=== PATIENT | female | born 1950 | race Hispanic/Latino ===

== ENCOUNTER → 2021-10-11 | Day surgery (SDC) | payer MEDICARE ==
[2021-10-10 11:07] LABS: BASOPHILS % 0.2 % (0.0-1.0); EOSINOPHILS # (AUTO) 0.1 (0.0-0.4); EOSINOPHILS % 1.7 % (0.0-6.0); HEMATOCRIT 39.1 % (34.2-44.1); HEMOGLOBIN 11.8 g/dL (12.0-16.0); LYMPHOCYTES # (AUTO) 1.9 (1.0-3.2); LYMPHOCYTES % 34.7 % (18.0-39.1); MEAN CORPUSCULAR HEMOGLOBIN 25.6 pg (28-32); MEAN CORPUSCULAR HGB CONC 30.2 g/dL (31-35); MEAN CORPUSCULAR VOLUME 84.8 fL (81-99); MONOCYTES # (AUTO) 0.8 (0.2-0.8); MONOCYTES % 15.1 % (4.4-11.3); NEUTROPHILS # (AUTO) 2.6 (2.1-6.9); NEUTROPHILS % 47.9 % (38.7-80.0); PLATELET COUNT 273 x10e3/uL (140-360); RED BLOOD COUNT 4.61 x10e6/uL (3.6-5.1); RED CELL DISTRIBUTION WIDTH 16.1 % (11.7-14.4)
[~2021-10-11] MED LIST: ACTOS15 MG PO; ALBUTEROL0.63 MG/3 NEB; AMITRIPTYLINE H10 MG PO; ASPIRIN81 MG PO; BUDESONIDE0.5 MG/2 M NEB; DEXTROSE 5% 250ML 250 ML IV ONE; FENTANYL CITRATE/PF 100MCG/2 ML INJ ONE; FLECTOR1 EACH TOP; FLONASE ALLERG9.9 ML INH; FOLIC ACID0.4 MG PO; GABAPENTIN300 MG PO; HYOSCYAMINE SULFATE 0.5 MG/ML INJ ONE; LEVOTHYROXINE112 MCG PO; LIDOCAINE HCL 2% LOCAL INJ 5 ML SDV VIAL INJ ONE; LIPITOR10 MG PO; MICARDIS20 MG PO; MIDAZOLAM HCL 2 MG/2 ML VIAL ONE; NEXIUM40 MG PO; OZEMPIC0.25 MG/0. SC; PHENYLEPHRINE HCL 1% 10 MG/ML VIAL ONE; TOVIAZ4 MG PO; VIT D PO; XIGDUO XR 5 MG1 EAC1 PO; [UNRECOGNIZED DRUG - OTHER] INJ
[2021-10-11 16:36] VITALS: BP 136/70
== END | disposition home or self-care (01) ==
LOC: OR 11:49
PROVIDERS: ATTEND Internal Medicine Gastroenterology
DX: K29.50 Unspecified chronic gastritis without bleeding (principal); K62.1 Rectal polyp; K21.00 Gastro-esophageal reflux disease with esophagitis, without bleeding; K22.89 Other specified disease of esophagus; K44.9 Diaphragmatic hernia without obstruction or gangrene; K57.30 Diverticulosis of large intestine without perforation or abscess without bleeding; K64.8 Other hemorrhoids; Z71.3 Dietary counseling and surveillance; E11.9 Type 2 diabetes mellitus without complications; I25.10 Atherosclerotic heart disease of native coronary artery without angina pectoris; I10 Essential (primary) hypertension; J45.909 Unspecified asthma, uncomplicated; M06.9 Rheumatoid arthritis, unspecified; E03.9 Hypothyroidism, unspecified; Z88.0 Allergy status to penicillin; Z01.810 Encounter for preprocedural cardiovascular examination; Z01.812 Encounter for preprocedural laboratory examination; Z20.822 Contact with and (suspected) exposure to COVID-19; Z79.82 Long term (current) use of aspirin; Z79.84 Long term (current) use of oral hypoglycemic drugs; Z79.899 Other long term (current) drug therapy; Z68.30 Body mass index [BMI] 30.0-30.9, adult; Z87.01 Personal history of pneumonia (recurrent); Z86.2 Personal history of diseases of the blood and blood-forming organs and certain disorders involving the immune mechanism; Z95.5 Presence of coronary angioplasty implant and graft
CPT/HCPCS: 36415 ×2; 43239; 45385; 82948; 85025; 93005; C9113; J1980; J2001; J2250; J2370; J3010; J7070; U0002; 45378